=== PATIENT | male | born 1990 | race Two or more races ===

== ENCOUNTER 2017-09-02 01:45 | Emergency (ER) | payer SELFPAY ==
[2017-09-02 01:54] VITALS: BP 132/80; PULSE 88; TEMP 98.1; BMI 20.7
--- NOTE | 2017-09-02 01:58 | PDOC ---
History of Present Illness - General Chief Complaint: Wound Stated Complaint: RH BLEEDING Time Seen by Provider: 09/02/17 01:49 - History of Present Illness Initial Comments: This otherwise healthy 27-year-old man presents with persistent bleeding from the site of wart removal on the dorsum of his right hand. Under the supervision of his window glass installer (Dr. Shoemaker), he had been applying salicylic acid solution to area of wart on his right hand. Tonight, he noted that most of the wart had peeled off except for one small area. He pulled this one area off manually. Since then, there is been a tiny area that has been bleeding persistently despite direct pressure. Patient has no other history of persistent bleeding/easy bruising/poor wound healing. He is on no anticoagulation medication Past History - Past Medical History Allergies/Adverse Reactions: Allergies Allergy/AdvReac Type Severity Reaction Status Date / Time No Known Allergies Allergy Unverified 03/04/15 23:40 Home Medications: Ambulatory Orders NK [No Known Home Medication] 09/02/17 Other medical history: DENIES - Immunization History Immunization Up to Date: Yes - Suicide/Smoking/Psychosocial Hx Smoking History: Current every day smoker Number of Cigarettes Smoked Daily: 10 Information on smoking cessation initiated: Yes 'Breaking Loose' booklet given: 09/02/17 Hx Alcohol Use: No Substance Use Type: None Review of Systems - Review of Systems Able to Perform ROS?: Yes Comments:: 12 point review of systems is negative except for what is noted in the history of present illness *Physical Exam - Vital Signs Last Vital Signs Temp Pulse Resp BP Pulse Ox 98.1 F 88 16 132/80 97 09/02/17 01:52 09/02/17 01:52 09/02/17 01:52 09/02/17 01:52 09/02/17 01:52 - Physical Exam Comments: GENERAL: Adult male, in no acute distress NEUROLOGICAL: Cranial nerves II through XII grossly intact. Normal speech. No focal neurological deficits. MUSCULOSKELETAL: Back non-tender to palpation, no CVA tenderness SKIN: Right hand2 mm minute area of bleeding within a well healed 5 mm flat erythematous area noted dorsum No exposed vessel and no pulsatile flow; no other lesions evident on hand Dermatologic exam otherwise normal Progress Note - Progress Note Progress Note: The dorsal aspect of the right hand cleansed with normal saline. Pressure applied to area of persistent bleeding. When hemostasis achieved, area of bleeding was covered with a thin layer of Dermabond skin adhesive. No further bleeding observed. Telfa non-adhesive dressing applied, followed by gauze wrap. 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 After that, he can wait briefly and protect the area as needed. He should follow-up with his window glass installer within one week. He should return to the ER area is red, swollen/painful or has discharge/ persistent bleeding. *DC/Admit/Observation/Transfer Diagnosis at time of Disposition: Open wound, hand Qualifiers: Encounter type: initial encounter Open wound type: unspecified Foreign body presence: without foreign body Laterality: right Qualified Code(s): S61.401A - Unspecified open wound of right hand, initial encounter - Discharge Dispostion Disposition: HOME Condition at time of disposition: Stable - Referrals Referrals: Jae Medina MD [Primary Care Provider] - - Patient Instructions Printed Discharge Instructions: How to Care for a Surgical Wound-Skin Adhesive Additional Instructions: Keep original dressing intact for 24 hours Use gauze at work Keep wound as dry as possible for the next 2-3 days Return to ER if you have persistent bleeding or notice redness/swelling in area Follow-up with your window glass installer within the next week
== END 2017-09-02 02:29 | disposition home or self-care (01) ==
LOC: FER 01:45
DX: S61.401A Unspecified open wound of right hand, initial encounter (principal); F17.210 Nicotine dependence, cigarettes, uncomplicated
CPT/HCPCS: 99281-25

== ENCOUNTER 2018-01-06 23:37 | Emergency (ER) | payer OTHER ==
[2018-01-06 23:43] VITALS: BP 120/73; PULSE 88; TEMP 98.5; BMI 19.0
--- NOTE | 2018-01-06 23:59 | PDOC ---
History of Present Illness - General Chief Complaint: Pain, Acute Stated Complaint: ABDOMINAL PAIN Time Seen by Provider: 01/06/18 23:47 History Source: Patient Exam Limitations: No Limitations - History of Present Illness Initial Comments: 01/06/18 23:59 This is a 27-year-old male who comes in complaining of intermittent sharp abdominal pain 1 day. Patient has a history of constipation and thinks it may be gas pains but wants to come in and get it checked out. Patient denies any fever, chills, nausea, vomiting or diarrhea. Patient denies any pain at this time. PAST MEDICAL HISTORY: no significant history PAST SURGICAL HISTORY: no significant history FAMILY HISTORY: no pertinant history SOCIAL HISTORY: Pt lives with family and is employed. MEDICATIONS: reviewed ALLERGIES: As per nursing notes Review of Systems General: No fevers or chills, no weakness, no weight loss HEENT: No change in vision. No sore throat,. No ear pain CardioVascular: No chest pain or shortness of breath Respiratory:No cough, or wheezing. Gastrointestinal: no nausea, vomitting, diarrhea No rectal bleeding, + constipation, +abdominal pain Genitourinary: No dysuria, hematuria, or frequency Musculoskeletal: No joint or muscle pain or swelling Neurologic: No headache, vertigo, dizziness or loss of consciousness Psychiatric: nor depression Skin: No rashes or easy bruising Endocrine: no increased thirst or abnormal weight change Allergic: no skin or latex allergy All other systems reviewed and normal Exam: General: Well-nourished well-developed individual, no acute distress HEENT: Throat: Normal, tonsils normal, no erythema or exudate Neck: Supple, no meningeal signs, no lymphadenopathy Eyes::Pupils equal reactive and round, extraocular motion intact Chest: Nontender to palpation Cardiac: S1-S2 normal, regular rate and rhythm, no murmurs rubs or gallops Respiratory: Lungs clear to auscultation bilateral Abdomen: Soft, nondistended, normal bowel sounds, nontender to palpation diffusely Extremities: Warm, dry, no cyanosis, clubbing, or edema Skin: No rashes Neuro: Alert and oriented x3, CN II - XII intact, nonfocal exam with normal strength, normal sensation, normal reflexes, normal gait, Psych: Normal mood and affect Medical decision making: As patient's exam is completely normal nontender exam will obtain a flat and right upper abdomen as this most likely is constipation. Otherwise patient has a GI doctor that he has been seeing and was told that he most likely has irritable bowel syndrome that is causing bouts of intermittent constipation and diarrhea. Patient said that he has had constipation now for several days. 01/07/18 00:28 X-ray shows a large amount of stool with a air-fluid filled loop of intestines that is not dilated and there is no air-fluid level. There is air all the way through to the colon. Assessment and plan: This is 27-year-old male comes in complaining of sharp intermittent gas type pains. Patient is constipated. And there is a large amount of gas in the area where he is complaining of intermittent pain. Patient was told to get himself some fleets enema, some laxatives that is over-the- counter and I will give him a bottle of mag citrate to take home and drink at home. Patient discharged will follow-up with his primary care doctor Past History - Past Medical History Allergies/Adverse Reactions: Allergies Allergy/AdvReac Type Severity Reaction Status Date / Time No Known Allergies Allergy Unverified 03/04/15 23:40 Home Medications: Ambulatory Orders NK [No Known Home Medication] 09/02/17 COPD: No GI Disorders: Yes - Immunization History Immunization Up to Date: Yes - Suicide/Smoking/Psychosocial Hx Smoking History: Never smoked Number of Cigarettes Smoked Daily: 10 'Breaking Loose' booklet given: 09/02/17 Hx Alcohol Use: No Substance Use Type: None *Physical Exam - Vital Signs Last Vital Signs Temp Pulse Resp BP Pulse Ox 98.5 F 88 16 120/73 99 01/06/18 23:39 01/06/18 23:39 01/06/18 23:39 01/06/18 23:39 01/06/18 23:39 *DC/Admit/Observation/Transfer Diagnosis at time of Disposition: Constipation Qualifiers: Constipation type: unspecified constipation type Qualified Code(s): K59.00 - Constipation, unspecified - Discharge Dispostion Disposition: HOME Condition at time of disposition: Stable Admit: No - Referrals Referrals: Jae Medina MD [Primary Care Provider] - - Patient Instructions Additional Instructions: Drink the mag citrate tomorrow morning or tonight if you're having further discomfort and unable to sleep. Purchase an [id number] laxative and take as needed for constipation. Return to the emergency department immediately with ANY new, persistent or worsening symptoms. Continue any medications as previously prescribed by your physician. You should follow up with your primary doctor as soon as possible regarding today's emergency department visit. . Please make sure your doctor reviews the results of your emergency evaluation. Thank you for coming to the Emergency Department today for your care. It was a pleasure to see you today. Please note that your evaluation is INCOMPLETE until you follow-up with your doctor. - Post Discharge Activity
[2018-01-07] MEDS ORDERED: MAGNESIUM CITRATE 300 ML BOTTLE PO ONE (00:31)
[2018-01-07] MEDS ORDERED: MAGNESIUM CITRATE 300 ML BOTTLE ONE (00:33)
== END 2018-01-07 00:40 | disposition home or self-care (01) ==
LOC: FER 23:37
DX: K59.00 Constipation, unspecified (principal)
CPT/HCPCS: 74019-TC-FY; 99282-25

== ENCOUNTER 2018-09-27 19:27 | Emergency (ER) | payer OTHER ==
[2018-09-27 19:31] VITALS: BP 146/80; PULSE 100; TEMP 98.6; BMI 20.7
--- NOTE | 2018-09-27 19:41 | PDOC ---
History of Present Illness - General History Source: Patient Exam Limitations: No Limitations - History of Present Illness Initial Comments: 09/27/18 20:24 The patient is a 28 year old male, with a significant past medical history of IBS, who presents to the ED complaining of abdominal pain for the last few days. He describes his abdominal pain as diffused throughout, ranging from mild to moderate and intermittent in nature. He notes that the pain usually lasts 20- 30 minutes before resolving on its on. He denies noticing any food exacerbating his pain. He notes that his last bowel movement was today, which was small and skinny in appearance. He denies any kind of blood. He does note an episode of loose stools a few days ago that has since resolved. He notes that he has been eating more "junk food" recently than normal. He reports that he does follow up with a primary that has advised him to eat more healthy and cut smoking. The patient denies chest pain, shortness of breath, headache and dizziness. Denies fever, chills, nausea, vomiting, diarrhea, dysuria, frequency, urgency and hematuria. Allergies: None Past surgical history: None reported Social History: Cigarette use (7 daily). Occasional alcohol use. PCP: Dr. Medina <Figueroa Eubanks - Last Filed: 09/27/18 20:23> <Anastasiia Welsh - Last Filed: 09/28/18 03:41> - General Chief Complaint: Pain Stated Complaint: ABD PAIN Time Seen by Provider: 09/27/18 19:28 Past History <Figueroa Eubanks - Last Filed: 09/27/18 20:23> - Past Medical History COPD: No GI Disorders: Yes (IBS) - Immunization History Immunization Up to Date: Yes - Suicide/Smoking/Psychosocial Hx Smoking History: Current every day smoker Have you smoked in the past 12 months: Yes Number of Cigarettes Smoked Daily: 7 Information on smoking cessation initiated: Yes 'Breaking Loose' booklet given: 09/27/18 Hx Alcohol Use: (occasional) Substance Use Type: None <Anastasiia Welsh - Last Filed: 09/28/18 03:41> - Past Medical History Allergies/Adverse Reactions: Allergies Allergy/AdvReac Type Severity Reaction Status Date / Time No Known Allergies Allergy Verified 09/27/18 19:28 Home Medications: Ambulatory Orders NK [No Known Home Medication] 09/02/17 Review of Systems - Review of Systems Able to Perform ROS?: Yes Comments:: 09/27/18 20:26 GENERAL/CONSTITUTIONAL: No fever or chills. No weakness. HEAD, EYES, EARS, NOSE AND THROAT: No change in vision. No ear pain or discharge. No sore throat. GASTROINTESTINAL: (+) Abdominal pain and constipation. No nausea, vomiting, diarrhea. GENITOURINARY: No dysuria, frequency, or change in urination. CARDIOVASCULAR: No chest pain or shortness of breath. RESPIRATORY: No cough, wheezing, or hemoptysis. MUSCULOSKELETAL: No joint or muscle swelling or pain. No neck or back pain. SKIN: No rash NEUROLOGIC: No headache, vertigo, loss of consciousness, or change in strength/ sensation. ENDOCRINE: No increased thirst. No abnormal weight change. HEMATOLOGIC/LYMPHATIC: No anemia, easy bleeding, or history of blood clots. ALLERGIC/IMMUNOLOGIC: No hives or skin allergy. <Figueroa Eubanks - Last Filed: 09/27/18 20:23> *Physical Exam - Vital Signs Last Vital Signs Temp Pulse Resp BP Pulse Ox 98.6 F 100 H 18 146/80 100 09/27/18 19:27 09/27/18 19:27 09/27/18 19:27 09/27/18 19:27 09/27/18 19:27 - Physical Exam Comments: 09/27/18 20:26 Constitutional: Awake, alert, oriented. No acute distress. Head: Normocephalic. Atraumatic Cardiovascular: Regular rate. Regular rhythm. S1, S2 regular. Distal pulses are 2+ and symmetric. Pulmonary/Chest: No evidence of respiratory distress. Clear to auscultation bilaterally No wheezing, rales or rhonchi. Abdominal: Soft and non-distended. There is no tenderness. No rebound, guarding or rigidity. No organomegaly. No palpable masses. Good bowel sounds. Back: No CVA tenderness. Musculoskeletal: No edema. No cyanosis. No clubbing. Full range of motion in all extremities. Nocalf tenderness. Radial/pedal pulses are intact and 2+ bilaterally Skin: Skin is warm and dry. No petechiae. No purpura. Neurological: Alert and oriented to person, place, and time. Cranial nerves II -XII are grossly intact. Normal speech. Strength is grossly symmetric. No sensory deficits. Psychiatric: Good eye contact. Normal interaction, affect and behavior. <Figueroa Eubanks - Last Filed: 09/27/18 20:23> - Vital Signs Last Vital Signs Temp Pulse Resp BP Pulse Ox 98.6 F 100 H 18 146/80 100 09/27/18 19:27 09/27/18 19:27 09/27/18 19:27 09/27/18 19:27 09/27/18 19:27 <Anastasiia Welsh - Last Filed: 09/28/18 03:41> Progress Note - Progress Note Progress Note: Documentation has been prepared under my direction and personally reviewed by me in its entirety. I attest that this documented accurately reflects all work, treatment, procedures and medical decision making performed by me. <Anastasiia Welsh - Last Filed: 09/28/18 03:41> Medical Decision Making - Medical Decision Making As noted above, this 28-year-old man with a history of intermittent abdominal pain chronically and with diagnosis of irritable bowel syndrome presents with a few week history of intermittent abdominal discomfort. By his own admission, symptoms began after he ate a large amount of processed food. He has not had any nausea or vomiting during this time and he denies diarrhea or significant constipation. He describes narrow caliber stools in recent days. Exam as noted. Flat and upright abdominal x-ray performed and interpreted by me : Patient has dilated intestine: Most of this is large intestine. There appears to be some small intestine visualized and air-filled. No air-fluid levels seen in this bowel. Upright film has no air-fluid levels or other suggestions of focal obstruction. Clinical presentation most consistent with irritable bowel syndrome; patient states that he has not been evaluated by a bulk intake worker in the past. He will be given a referral information for Dr. Kenney; he should call the office to be seen next week. Meanwhile, the patient will drink plenty of water, continue his fiber supplementation. Probiotics should be considered. He states that he has been trying to consume of balanced diet of natural foods . He is encouraged to continue this. He should return to the emergency room if he has vomiting or increasing pain. <Anastasiia Welsh - Last Filed: 09/28/18 03:41> *DC/Admit/Observation/Transfer - Attestations Scribe Attestion: 09/27/18 20:26 Documentation prepared by Figueroa Eubanks, acting as medical laboratory assistant for Anastasiia Welsh MD <Figueroa Eubanks - Last Filed: 09/27/18 20:23> <Anastasiia Welsh - Last Filed: 09/28/18 03:41> Diagnosis at time of Disposition: Abdominal pain Qualifiers: Abdominal location: generalized Qualified Code(s): R10.84 - Generalized abdominal pain Irritable bowel syndrome Qualifiers: Irritable bowel syndrome type: with both diarrhea and constipation Qualified Code(s): K58.2 - Mixed irritable bowel syndrome - Discharge Dispostion Disposition: HOME Condition at time of disposition: Stable - Referrals Referrals: Jae Medina MD [Primary Care Provider] - Lei Kenney MD [Staff Physician] - 1 week - Patient Instructions Printed Discharge Instructions: DI for Abdominal Pain-Adult Additional Instructions: Continue to eat healthy diet Continue fiber supplement Drink plenty of water Consider probiotics/increased physical activity as discussed Follow-up with bulk intake worker (Dr. Kenney) within 1 week Return to ER if you have worsening abdominal pain/vomiting/fever - Post Discharge Activity
== END 2018-09-27 21:07 | disposition home or self-care (01) ==
LOC: FER 19:27
DX: K58.2 Mixed irritable bowel syndrome (principal); R10.84 Generalized abdominal pain
CPT/HCPCS: 74019-TC-FY; 99283-25

== ENCOUNTER 2018-10-22 21:01 | Emergency (ER) | payer OTHER ==
--- NOTE | 2018-10-22 21:14 | PDOC ---
History of Present Illness - General History Source: Patient Exam Limitations: No Limitations - History of Present Illness Initial Comments: 10/22/18 21:32 A portion of this note was documented by scribe services under my direction. I have reviewed the details of the note, within reason, and agree with the documentation with the following case summary and management plan written by me. Patient treated in the ED. Nursing notes are reviewed and incorporated into the medical decision-making. Vital signs reviewed. Assessment and plan: This is a 28-year-old male who comes in complaining of intermittent left ear pain times a few months. Patient said it has been getting more constant and worse over the last several weeks. Here in the emergency room on my exam there was no obvious source of his ear pain however he did have some cerumen in his external ear canal and he also had some dental cavities of his teeth on that side. I recommended that he follow-up with his dentist, get some earwax removal solution and using it and follow up with his primary care doctor. <Yessenia Burciaga I - Last Filed: 10/22/18 21:32> - History of Present Illness Initial Comments: This is a 28 year old male with no significant past medical history, who presents to the emergency department today complaining of left ear pain for a few months, which has gotten progressively worse in the past 2 days. Patient reports that his ear feels clogged and will pop when he swallows. He denies any ear discharge. He denies having any teeth pain. The patient denies chest pain, shortness of breath, headache and dizziness. Denies fever, chills, nausea, vomit, diarrhea and constipation. Denies dysuria, frequency, urgency and hematuria. PAST MEDICAL HISTORY: no significant history PAST SURGICAL HISTORY: no significant history FAMILY HISTORY: no pertinent history SOCIAL HISTORY: Pt lives with family and is employed. MEDICATIONS: reviewed ALLERGIES: As per nursing notes ROS General: No fevers or chills, no weakness, no weight loss HEENT: +Left ear pain and popping. No change in vision. No sore throat. CardioVascular: No chest pain or shortness of breath Respiratory:No cough, or wheezing. Gastrointestinal: no nausea, vomiting, diarrhea or constipation, No rectal bleeding Genitourinary: No dysuria, hematuria, or frequency Musculoskeletal: No joint or muscle pain or swelling Neurologic: No headache, vertigo, dizziness or loss of consciousness Psychiatric: nor depression Skin: No rashes or easy bruising Endocrine: no increased thirst or abnormal weight change Allergic: no skin or latex allergy All other systems reviewed and normal PE GENERAL: The patient is awake, alert, and fully oriented, in no acute distress. HEAD: Normal with no signs of trauma. EYES: Pupils equal, round and reactive to light, extraocular movements intact, sclera anicteric, conjunctiva clear. EARS: +Bilateral external canals with mild to moderate amount of cerumen, right greater than left. Tympanic membranes normal bilateral. THROAT: Normal, no lymphadenopathy. MOUTH: +Left lower second and third molar dental caries. No evidence of periodontal infection. EXTREMITIES: Normal range of motion, no edema. NEUROLOGICAL: Normal speech, normal gait. PSYCH: Normal mood, normal affect. SKIN: Warm, Dry, normal turgor, no rashes or lesions noted. 10/22/18 21:51 <Nicole Ledbetter - Last Filed: 10/22/18 21:51> - General Chief Complaint: Ear Problem Stated Complaint: EAR PAIN Time Seen by Provider: 10/22/18 21:14 Past History - Past Medical History COPD: No GI Disorders: Yes (IBS) - Immunization History Immunization Up to Date: Yes - Suicide/Smoking/Psychosocial Hx Smoking History: Current every day smoker Have you smoked in the past 12 months: Yes Number of Cigarettes Smoked Daily: 7 'Breaking Loose' booklet given: 09/27/18 Hx Alcohol Use: (occasional) Substance Use Type: None <Yessenia Burciaga I - Last Filed: 10/22/18 21:32> <Nicole Ledbetter - Last Filed: 10/22/18 21:51> - Past Medical History Allergies/Adverse Reactions: Allergies Allergy/AdvReac Type Severity Reaction Status Date / Time No Known Allergies Allergy Verified 10/22/18 21:11 Home Medications: Ambulatory Orders Pantoprazole Sodium [Protonix -] 40 mg PO DAILY 10/22/18 *Physical Exam - Vital Signs Last Vital Signs Temp Pulse Resp BP Pulse Ox 98.7 F 97 H 16 116/63 98 10/22/18 21:10 10/22/18 21:10 10/22/18 21:10 10/22/18 21:10 10/22/18 21:10 <Nicole Ledbetter - Last Filed: 10/22/18 21:51> Moderate Sedation - Procedure Monitoring Vital Signs: Procedure Monitoring Vital Signs Temperature 98.7 F 10/22/18 21:10 Pulse Rate 97 H 10/22/18 21:10 Respiratory Rate 16 10/22/18 21:10 Blood Pressure 116/63 10/22/18 21:10 O2 Sat by Pulse Oximetry (%) 98 10/22/18 21:10 <Nicole Ledbetter - Last Filed: 10/22/18 21:51> *DC/Admit/Observation/Transfer - Discharge Dispostion Decision to Admit order: No <Yessenia Burciaga I - Last Filed: 10/22/18 21:32> - Attestations Scribe Attestion: 10/22/18 21:51 Documentation prepared by YAS Kaye, acting as medical legal investigator for Yessenia Burciaga MD. <Nicole Ledbetter - Last Filed: 10/22/18 21:51> Diagnosis at time of Disposition: Ear ache - Discharge Dispostion Disposition: HOME Condition at time of disposition: Good - Referrals Referrals: Jae Medina MD [Primary Care Provider] - - Patient Instructions Printed Discharge Instructions: Tips to Help You Stop Smoking, DI for Ear Pain- Adult Additional Instructions: For the pain U can take ibuprofen 3 tablets as often as 3 times a day if needed. Follow-up with your dentist as I do see a couple of your teeth that appear to have a dental cavity Go to the pharmacy and get some [id number] earwax removal solution and use as directed on the box to help loosen and remove any earwax in your ears Return to the emergency department immediately with ANY new, persistent or worsening symptoms. Continue any medications as previously prescribed by your physician. You should follow up with your primary doctor as soon as possible regarding today's emergency department visit. . Please make sure your doctor reviews the results of your emergency evaluation. Thank you for coming to the Emergency Department today for your care. It was a pleasure to see you today. Please note that your evaluation is INCOMPLETE until you follow-up with your doctor. . - Post Discharge Activity
[2018-10-22 21:16] VITALS: BP 116/63; PULSE 97; TEMP 98.7
== END 2018-10-22 21:33 | disposition home or self-care (01) ==
LOC: FER 21:01
DX: H92.02 Otalgia, left ear (principal)
CPT/HCPCS: 99281-25

== ENCOUNTER 2018-10-29 08:07 | Day surgery (SDC) | payer OTHER ==
[2018-10-29 08:40] VITALS: TEMP 97.8
[2018-10-29] MEDS ORDERED: PROPOFOL 20 ML ONE (09:04)
[2018-10-29] MEDS ORDERED: LIDOCAINE HCL/PF 2% SDV 5ML VIAL ONE (09:04)
[2018-10-29 09:55] VITALS: BP 109/69; PULSE 71
--- NOTE | 2018-10-31 14:30 | PATH ---
Surgical Pathology Report Patient Name: JEROME LOMELI [facility]. Rec. #: [id number] /Age/Gender: 1990 (Age: 28) / M Account: [id number] [facility] Taken: 10/29/2018 Received: 10/29/2018 Reported: 10/31/2018 Physicians: Lei Kenney M.D. Specimen(s) Received A: 2ND PORTION DUODENUM B: BX ANTRUM Clinical History GERD, abdominal pain Postoperative diagnosis: Gastritis Final Diagnosis A. SECOND PORTION OF DUODENUM, BIOPSY: DUODENAL MUCOSA WITH NO PATHOLOGIC FINDINGS. B. ANTRUM, BIOPSY: MILD CHRONIC GASTRITIS. IMMUNOSTAIN IS NEGATIVE FOR H. PYLORI ORGANISMS. Electronically Signed Margi Vital M.D. Gross Description A. Received in formalin, labeled "second portion of duodenum" are 2 palmer, irregular portions of soft tissue averaging 0.4 cm. in greatest dimension. The specimens are submitted in toto in one cassette. B. Received in formalin, labeled "biopsy antrum" are 2 palmer, irregular portions of soft tissue averaging 0.3 cm. in greatest dimension. The specimens are submitted in toto in one cassette. /10/29/201810/29/2018
== END 2018-10-29 10:00 | disposition home or self-care (01) ==
LOC: FASU-ENDO 08:07
PROVIDERS: ATTEND Internal Medicine Gastroenterology
PROC: 0DB58ZX Excision of Esophagus, Via Natural or Artificial Opening Endoscopic, Diagnostic (ICD-10-PCS; 2018-10-29)
PROC: 0DB98ZX Excision of Duodenum, Via Natural or Artificial Opening Endoscopic, Diagnostic (ICD-10-PCS; principal; 2018-10-29 09:00)
DX: K29.50 Unspecified chronic gastritis without bleeding (principal)
CPT/HCPCS: 88305-TC; 88342-TC

== ENCOUNTER 2018-11-06 04:55 | Emergency (ER) | payer OTHER ==
[2018-11-06 05:04] VITALS: BP 118/77; PULSE 92; TEMP 97.7
--- NOTE | 2018-11-06 05:11 | PDOC ---
History of Present Illness - General Chief Complaint: Constipation Stated Complaint: STOMACH CRAMPS/CONSTIPATION Time Seen by Provider: 11/06/18 04:58 - History of Present Illness Initial Comments: 11/06/18 05:51 28-year-old male with a history of inflammatory bowel syndrome complicated by frequent constipation presents to the emergency Department with complaints of constipation. Patient reports having a small bowel movement yesterday, but still feels constipated prompting his visit to the emergency department. Denies abd pain. He denies any associated fevers or chills, nausea, vomiting. He has tried magnesium citrate and Dulcolax for his constipation with no improvement. The patient follows with GI Dr. Kenney for his inflammatory bowel syndrome, states he had an endoscopy last month and is awaiting the results. Denies headache, weakness, dizziness, chest pain, shortness of breath, urinary symptoms , lower extremity edema. Patient is passing flatus. Past History - Past Medical History Allergies/Adverse Reactions: Allergies Allergy/AdvReac Type Severity Reaction Status Date / Time No Known Allergies Allergy Verified 11/06/18 04:57 Home Medications: Ambulatory Orders Pantoprazole Sodium [Protonix -] 40 mg PO HS 10/22/18 Docusate Sodium [Colace] 100 mg PO DAILY #14 capsule 11/06/18 Glycerin Suppository Adult - 1 each RC ONCE #1 supp.rect 11/06/18 Lactulose (Oral Use) [Cephulac -] 20 gm PO ONCE #1 udc 11/06/18 Sennosides/Docusate Sodium [Senna Laxative Tablet] 1 each PO DAILY #14 tablet Anemia: No Asthma: No Cancer: No Cardiac Disorders: No CVA: No COPD: No CHF: No Dementia: No Diabetes: No GI Disorders: Yes (IBS) Disorders: No HTN: No Hypercholesterolemia: No Liver Disease: No Seizures: No Thyroid Disease: No - Immunization History Immunization Up to Date: Yes - Suicide/Smoking/Psychosocial Hx Smoking History: Current every day smoker Have you smoked in the past 12 months: Yes Number of Cigarettes Smoked Daily: 7 Information on smoking cessation initiated: Yes 'Breaking Loose' booklet given: 09/27/18 Hx Alcohol Use: Yes (RARELY) Drug/Substance Use Hx: Yes (MARIJUANA DAILY) Substance Use Type: None Hx Substance Use Treatment: No Review of Systems - Review of Systems Comments:: 11/06/18 05:59 GENERAL/CONSTITUTIONAL: No fever or chills. No weakness. HEAD, EYES, EARS, NOSE AND THROAT: No change in vision. No ear pain or discharge. No sore throat. GASTROINTESTINAL: No nausea, vomiting, diarrhea, +constipation. GENITOURINARY: No dysuria, frequency, or change in urination. CARDIOVASCULAR: No chest pain or shortness of breath. RESPIRATORY: No cough, wheezing, or hemoptysis. MUSCULOSKELETAL: No joint or muscle swelling or pain. No neck or back pain. SKIN: No rash NEUROLOGIC: No headache, vertigo, loss of consciousness, or change in strength/ sensation. ENDOCRINE: No increased thirst. No abnormal weight change. HEMATOLOGIC/LYMPHATIC: No anemia, easy bleeding, or history of blood clots. ALLERGIC/IMMUNOLOGIC: No hives or skin allergy. *Physical Exam - Vital Signs Last Vital Signs Temp Pulse Resp BP Pulse Ox 97.7 F 92 H 16 118/77 99 11/06/18 04:58 11/06/18 04:58 11/06/18 04:58 11/06/18 04:58 11/06/18 04:58 - Physical Exam Comments: 11/06/18 06:00 GENERAL: Awake, alert, and fully oriented, in no acute distress EYES: PERRLA, EOMI, sclera anicteric, conjunctiva clear ENT: Oropharynx clear without exudates. Moist mucosa LUNGS: Breath sounds equal, clear to auscultation bilaterally. No wheezes, and no crackles HEART: Regular rate and rhythm, normal S1 and S2, no murmurs, rubs or gallops ABDOMEN: Soft, nontender, normoactive bowel sounds. No guarding, no rebound. No masses. No distention EXTREMITIES: Normal range of motion, no edema. No cords, erythema, or tenderness NEUROLOGICAL: Normal speech, cranial nerves intact, equal strength and sensation b/l SKIN: Warm, Dry, normal turgor, no rashes or lesions noted. Moderate Sedation - Procedure Monitoring Vital Signs: Procedure Monitoring Vital Signs Temperature 97.7 F 11/06/18 04:58 Pulse Rate 92 H 11/06/18 04:58 Respiratory Rate 16 11/06/18 04:58 Blood Pressure 118/77 11/06/18 04:58 O2 Sat by Pulse Oximetry (%) 99 11/06/18 04:58 Medical Decision Making - Medical Decision Making 11/06/18 06:02 28yo M hx IBS c/b constipation presents to the ED with c/o constipation despite BM yesterday. Vitals wnl. Exam wnl with no abd ttp, no distention, and with normal bowel sounds. No urgent need for imaging at this time. Pt is well plugged in with GI as outpt. WIll DC with daily senna/colace and 1 time dose glycerin suppository and lactulose. Pt well appearing, clinically stable I discussed the physical exam findings, ancillary test results and final diagnoses with the patient. I answered all of the patient's questions. The patient was satisfied with the care received and felt comfortable with the discharge plan and treatment plan. The patient will call their primary care physician within 24 hours to arrange follow-up and will return to the Emergency Department with any new, persistent or worsening symptoms. *DC/Admit/Observation/Transfer Diagnosis at time of Disposition: Constipation, Irritable bowel syndrome - Discharge Dispostion Disposition: HOME Condition at time of disposition: Stable - Prescriptions Prescriptions: Docusate Sodium [Colace] 100 mg PO DAILY #14 capsule Glycerin Suppository Adult - 1 each RC ONCE #1 supp.rect Lactulose (Oral Use) [Cephulac -] 20 gm PO ONCE #1 udc Sennosides/Docusate Sodium [Senna Laxative Tablet] 1 each PO DAILY #14 tablet - Referrals - Patient Instructions Printed Discharge Instructions: DI for Constipation Additional Instructions: As discussed, call Dr. Kenney in the morning to discuss your ER visit. Follow up with Dr. Kenney within 2-3 days. Take the medications as prescribed Return to the emergency department if you have any new, worsening, or concerning symptoms. - Post Discharge Activity - Attestations Physician Attestion: 11/06/18 06:06 I, Dr. Jami Monique MD, attest that this document has been prepared under my direction and personally reviewed by me in its entirety. I further attest, that it accurately reflects all work, treatment, procedures and medical decision -making performed by me.
== END 2018-11-06 05:40 | disposition home or self-care (01) ==
LOC: FER 04:55
DX: K59.00 Constipation, unspecified (principal); K58.9 Irritable bowel syndrome, unspecified; F17.210 Nicotine dependence, cigarettes, uncomplicated
CPT/HCPCS: 99281-25